=== PATIENT | male | born 2000 | race Caucasian/White ===

== ENCOUNTER 2020-05-08 23:52 | Emergency (ER) | payer OTHER, SELFPAY ==
[~2020-05-08] VITALS: Ht 165.1 cm; Wt 73.9 kg
[2020-05-09 02:08] VITALS: Ht 165.1 cm; Wt 73.9 kg
[2020-05-09 04:14] VITALS: BP 108/73
== END 2020-05-09 04:14 | disposition home or self-care (01) ==
LOC: ED 23:52
DX: R07.89 Other chest pain (principal); Z20.828 Contact with and (suspected) exposure to other viral communicable diseases; Z90.89 Acquired absence of other organs
CPT/HCPCS: Q0092; U0003-CS